=== PATIENT | female | born 1950 | race Caucasian/White ===

== ENCOUNTER → 2017-02-24 | Outpatient (CLI) | payer MEDICARE, OTHER ==
[~2017-02-24] MED LIST: CALCIUM 600-D 61 TAB PO; CALCIUM 600600 MG PO; CALCIUM600 MG PO; COLACE 100100 MG/CAP PO; COZAAR100 MG PO; HCTZ 25MG TAB25 MG PO; HCTZ 25MG25 MG PO; HEXAVITAMIN1 CAP PO; MULTI VITAMINS1 TAB PO; NORCO 325 MG-51 TAB PO; NORCO 325 MG-7.1 TA1 PO; OMEGA-3 FISH1200 MG PO; PREMARIN 0.60.625 M1 PO; RELAFEN 50500 MG/TAB PO; TENORMIN 5050 MG/TAB PO; TENORMIN50 MG PO; ZOFRAN4 M1 PO
== END ==
LOC: COL.RAD 12:43
DX: M54.42 Lumbago with sciatica, left side (principal)
CPT/HCPCS: J3301

== ENCOUNTER → 2017-03-16 | Outpatient (CLI) | payer MEDICARE, OTHER | LOC: MHCPAIN 10:21 | DX: G89.29 Other chronic pain (principal); M47.27 Other spondylosis with radiculopathy, lumbosacral region; M53.3 Sacrococcygeal disorders, not elsewhere classified | CPT/HCPCS: G0463 ==

== ENCOUNTER 2017-03-30 12:59 | Outpatient (CLI) | payer MEDICARE, OTHER ==
[2017-03-30] VITALS (7 sets, daily range): BP systolic 150–176; BP diastolic 72–90; PULSE 49–56
[~2017-03-30] VITALS: Ht 154.9 cm; Wt 97.5 kg
== END 2017-03-30 16:36 | disposition home or self-care (01) ==
LOC: COL.RAD 12:59
DX: M51.26 Other intervertebral disc displacement, lumbar region (principal); M51.36 Other intervertebral disc degeneration, lumbar region; M48.06 Spinal stenosis, lumbar region
CPT/HCPCS: Q9965

== ENCOUNTER → 2017-04-13 | Outpatient (CLI) | payer MEDICARE, OTHER | LOC: MHCPAIN 10:23 | DX: G89.29 Other chronic pain (principal); M47.817 Spondylosis without myelopathy or radiculopathy, lumbosacral region; M53.3 Sacrococcygeal disorders, not elsewhere classified; M48.06 Spinal stenosis, lumbar region | CPT/HCPCS: G0463 ==

== ENCOUNTER → 2017-07-14 | Outpatient (CLI) | payer MEDICARE, OTHER | LOC: MHCPAIN 07:57 | DX: G89.29 Other chronic pain (principal); M47.27 Other spondylosis with radiculopathy, lumbosacral region; M53.3 Sacrococcygeal disorders, not elsewhere classified | CPT/HCPCS: G0463 ==

== ENCOUNTER 2017-07-28 07:30 | Outpatient (RCR) | payer MEDICARE, OTHER | END 2017-08-02 | LOC: WSPT | DX: M48.06 Spinal stenosis, lumbar region (principal); M47.816 Spondylosis without myelopathy or radiculopathy, lumbar region | CPT/HCPCS: G8978-GP; G8979-GP ==

== ENCOUNTER 2017-08-25 07:30 | Outpatient (RCR) | payer MEDICARE, OTHER | END 2017-08-31 09:06 | LOC: WSPT 07:30 | DX: M48.061 Spinal stenosis, lumbar region without neurogenic claudication (principal); M47.816 Spondylosis without myelopathy or radiculopathy, lumbar region | CPT/HCPCS: G8979-GP; G8980-GP ==

== ENCOUNTER → 2017-09-08 | Outpatient (CLI) | payer MEDICARE, OTHER | LOC: MC.RAD 07:00 | DX: Z12.31 Encounter for screening mammogram for malignant neoplasm of breast (principal) ==

== ENCOUNTER → 2017-10-06 | Outpatient (CLI) | payer MEDICARE, OTHER | LOC: MHCPAIN 07:55 | DX: G89.29 Other chronic pain (principal); M47.27 Other spondylosis with radiculopathy, lumbosacral region; M53.3 Sacrococcygeal disorders, not elsewhere classified | CPT/HCPCS: G0463 ==

== ENCOUNTER → 2018-04-06 | Outpatient (CLI) | payer MEDICARE, OTHER | LOC: MHCPAIN 08:02 | DX: G89.29 Other chronic pain (principal); M47.817 Spondylosis without myelopathy or radiculopathy, lumbosacral region; M54.16 Radiculopathy, lumbar region; M53.3 Sacrococcygeal disorders, not elsewhere classified; M48.061 Spinal stenosis, lumbar region without neurogenic claudication | CPT/HCPCS: G0463 ==

== ENCOUNTER 2018-07-26 08:26 | Day surgery (SDC) | payer MEDICARE, OTHER ==
[~2018-07-26] VITALS: Ht 152.4 cm; Wt 92.0 kg
[~2018-07-26 08:26] MED LIST changes: -TENORMIN 5050 MG/TAB PO; +TENORMIN100 MG PO
[2018-07-26] MEDS ORDERED: NEURONTIN300 MG/CAP PO (08:45)
[2018-07-26] MEDS ORDERED: OMEGA-31 SGL PO (08:46)
[2018-07-26] MEDS ORDERED: NORCO 325 MG-51 TAB PO (08:46)
[2018-07-26] MEDS ORDERED: BENADRYL25 M2 PO (08:47)
[2018-07-26] MEDS ORDERED: CLARITIN 1010 MG/TAB PO (08:47)
[2018-07-26 09:24] VITALS: BP 150/94; PULSE 56; TEMP 97.7
[2018-07-26 10:05] VITALS: BP 146/80; PULSE 52; TEMP 97.8
[2018-07-26 10:20] VITALS: BP 131/67; PULSE 50
[2018-07-26 10:35] VITALS: BP 149/76; PULSE 42
== END 2018-07-26 11:15 | disposition home or self-care (01) ==
LOC: SDCO 08:26
DX: Z12.11 Encounter for screening for malignant neoplasm of colon (principal); K64.0 First degree hemorrhoids; I10 Essential (primary) hypertension; M19.90 Unspecified osteoarthritis, unspecified site; M54.9 Dorsalgia, unspecified; Z90.710 Acquired absence of both cervix and uterus; Z90.722 Acquired absence of ovaries, bilateral; Z88.2 Allergy status to sulfonamides; Z88.8 Allergy status to other drugs, medicaments and biological substances
CPT/HCPCS: J2250; J3010; J7030

== ENCOUNTER → 2018-10-05 | Outpatient (CLI) | payer MEDICARE, OTHER ==
[~2018-10-05] MED LIST changes: +BENADRYL25 M2 PO; +CLARITIN 1010 MG/TAB PO; +NEURONTIN300 MG/CAP PO; +OMEGA-31 SGL PO
== END ==
LOC: MHCPAIN 08:01
DX: G89.29 Other chronic pain (principal); M47.817 Spondylosis without myelopathy or radiculopathy, lumbosacral region; M54.16 Radiculopathy, lumbar region; M53.3 Sacrococcygeal disorders, not elsewhere classified; M48.061 Spinal stenosis, lumbar region without neurogenic claudication
CPT/HCPCS: G0463

== ENCOUNTER → 2018-10-20 | Outpatient (CLI) | payer MEDICARE, OTHER | LOC: MHCPAIN 08:01 | DX: M47.817 Spondylosis without myelopathy or radiculopathy, lumbosacral region (principal); M54.16 Radiculopathy, lumbar region | CPT/HCPCS: J1100; Q9967 ==

== ENCOUNTER → 2018-11-01 | Outpatient (CLI) | payer MEDICARE, OTHER | LOC: MHCPAIN 07:57 | DX: G89.29 Other chronic pain (principal); M47.817 Spondylosis without myelopathy or radiculopathy, lumbosacral region; M54.16 Radiculopathy, lumbar region; M53.3 Sacrococcygeal disorders, not elsewhere classified; M48.061 Spinal stenosis, lumbar region without neurogenic claudication | CPT/HCPCS: G0463 ==

== ENCOUNTER → 2018-12-19 | Outpatient (CLI) | payer MEDICARE, OTHER | LOC: MHCPAIN 09:11 | DX: G89.29 Other chronic pain (principal); M47.817 Spondylosis without myelopathy or radiculopathy, lumbosacral region; M54.16 Radiculopathy, lumbar region; M53.3 Sacrococcygeal disorders, not elsewhere classified; M48.061 Spinal stenosis, lumbar region without neurogenic claudication | CPT/HCPCS: G0463 ==

== ENCOUNTER → 2018-12-29 | Outpatient (CLI) | payer MEDICARE, OTHER | LOC: MHCPAIN 08:15 | DX: M47.817 Spondylosis without myelopathy or radiculopathy, lumbosacral region (principal); M54.16 Radiculopathy, lumbar region | CPT/HCPCS: J1100; Q9967 ==

== ENCOUNTER → 2019-02-28 | Outpatient (CLI) | payer MEDICARE, OTHER | LOC: MC.RAD 07:31 | DX: Z12.31 Encounter for screening mammogram for malignant neoplasm of breast (principal) ==

== ENCOUNTER → 2019-03-28 | Outpatient (CLI) | payer MEDICARE, OTHER | LOC: MHCPAIN 08:10 | DX: G89.29 Other chronic pain (principal); M47.817 Spondylosis without myelopathy or radiculopathy, lumbosacral region; M54.16 Radiculopathy, lumbar region; M53.3 Sacrococcygeal disorders, not elsewhere classified; M48.061 Spinal stenosis, lumbar region without neurogenic claudication | CPT/HCPCS: G0463 ==

== ENCOUNTER → 2019-03-30 | Outpatient (CLI) | payer MEDICARE, OTHER | LOC: MHCPAIN 08:14 | DX: M47.817 Spondylosis without myelopathy or radiculopathy, lumbosacral region (principal); M54.16 Radiculopathy, lumbar region | CPT/HCPCS: J1100; Q9967 ==

== ENCOUNTER → 2019-04-12 | Outpatient (CLI) | payer MEDICARE, OTHER | LOC: MHCPAIN 08:49 | DX: G89.29 Other chronic pain (principal); M47.817 Spondylosis without myelopathy or radiculopathy, lumbosacral region; M54.16 Radiculopathy, lumbar region; M53.3 Sacrococcygeal disorders, not elsewhere classified; M48.061 Spinal stenosis, lumbar region without neurogenic claudication | CPT/HCPCS: G0463 ==

== ENCOUNTER 2019-06-01 13:00 | Outpatient (RCR) | payer MEDICARE, OTHER | END 2019-06-22 14:41 | disposition home or self-care (01) | LOC: WSC 13:00 | DX: M47.816 Spondylosis without myelopathy or radiculopathy, lumbar region (principal); M48.061 Spinal stenosis, lumbar region without neurogenic claudication ==

== ENCOUNTER → 2019-07-11 | Outpatient (CLI) | payer MEDICARE, OTHER | LOC: MHCPAIN 08:11 | DX: G89.29 Other chronic pain (principal); M47.817 Spondylosis without myelopathy or radiculopathy, lumbosacral region; M54.16 Radiculopathy, lumbar region; M53.3 Sacrococcygeal disorders, not elsewhere classified; M48.061 Spinal stenosis, lumbar region without neurogenic claudication | CPT/HCPCS: G0463 ==

== ENCOUNTER 2019-09-07 09:16 | Outpatient (CLI) | payer MEDICARE, OTHER ==
--- NOTE | 2019-09-04 09:02 | NUR ---
LMOM FOR PT TO CALL BACK AND GAVE TIME,DATE AND INSTRUCTIONS
[~2019-09-07] VITALS: Ht 152.4 cm; Wt 100.3 kg
[2019-09-07] VITALS (8 sets, daily range): BP systolic 94–160; BP diastolic 57–94; PULSE 43–65
[2019-09-07] MEDS ORDERED: TOPROL XL100 MG PO (09:53)
--- NOTE | 2019-09-07 13:00 | NUR ---
Discharge instructions given to pt.pt verbalizes understanding.Pt escorted out via wheelchair by this nurse.
== END 2019-09-07 14:47 | disposition home or self-care (01) ==
LOC: COL.RAD 09:16
DX: M48.061 Spinal stenosis, lumbar region without neurogenic claudication (principal); M51.16 Intervertebral disc disorders with radiculopathy, lumbar region
CPT/HCPCS: Q9965

== ENCOUNTER 2020-02-07 12:56 | Outpatient (RCR) | payer MEDICARE, OTHER ==
[~2020-02-07 12:56] MED LIST changes: +TOPROL XL100 MG PO
== END 2020-05-07 | disposition home or self-care (01) ==
LOC: WSPT
DX: M47.816 Spondylosis without myelopathy or radiculopathy, lumbar region (principal); M79.651 Pain in right thigh; R10.31 Right lower quadrant pain; Z98.1 Arthrodesis status

== ENCOUNTER → 2020-05-03 | Outpatient (CLI) | payer MEDICARE, OTHER | LOC: MC.RAD 14:45 | DX: Z12.31 Encounter for screening mammogram for malignant neoplasm of breast (principal) ==

== ENCOUNTER → 2021-07-01 | Outpatient (CLI) | payer MEDICARE | LOC: MC.RAD 10:47 | DX: Z12.31 Encounter for screening mammogram for malignant neoplasm of breast (principal) ==

== ENCOUNTER → 2022-07-28 | Outpatient (CLI) | payer MEDICARE | LOC: MC.RAD 10:53 | DX: Z12.31 Encounter for screening mammogram for malignant neoplasm of breast (principal) ==

== ENCOUNTER 2024-02-02 10:20 | Emergency (ER) | payer MEDICARE ==
[~2024-02-02] VITALS: Ht 154.9 cm; Wt 95.5 kg
[~2024-02-02 10:20] MED LIST changes: +MIRALAX PA17 GM/Dose PO; +TRIAMC 0.1 454 TOP; +[UNRECOGNIZED DRUG - OTHER] TOP
[2024-02-02 10:50] VITALS: TEMP 97.7
[2024-02-02] MEDS ORDERED: Morphine 4 MG/ML VIAL IV ONE (11:15)
[2024-02-02 11:37] LABS: BASO # 0.1 K/mm3 (0.0-0.2); EOS # 0.3 K/mm3 (0.0-0.7); EOS % 3.7 % (0.0-4.0); GRAN # 4.7 K/mm3 (1.4-6.5); GRAN % 70.3 % (42.2-75.2); HEMATOCRIT 40.3 % (37.0-47.0); HEMOGLOBIN 13.6 g/dl (12.5-16.0); LYMPH # 1.1 K/mm3 (1.2-3.4); LYMPH % 16.7 % (20.0-51.0); MEAN CELL VOLUME 88 fl (80.0-100.0); MEAN CORPUSCULAR HEMOGLOBIN 30 pg (27-31); MEAN CORPUSCULAR HGB CONC 34 g/dl (33.0-37.0); MONO # 0.5 K/mm3 (0.1-0.6); MONO % 7.6 % (1.7-9.3); PLATELET COUNT 372 K/mm3 (130-400); RED BLOOD COUNT 4.58 M/mm3 (4.10-5.30)
[2024-02-02 12:08] LABS: ALBUMIN 4.4 gm/dL (3.4-4.8); BILIRUBIN,TOTAL 0.6 mg/dL (0.2-1.2); CALCIUM 10.9 mg/dL (8.4-10.2); CREATININE, serum 0.8 mg/dL (0.57-1.11); POTASSIUM 3.7 mmol/L (3.5-4.5); TOTAL PROTEIN 8.2 gm/dL (6.2-8.1)
[2024-02-02 12:29] LABS: C-REACTIVE PROTEIN 0.4 mg/dL (0.00-0.50)
[2024-02-02] MEDS ORDERED: NS 1,000 ML IV ONE (12:30)
[2024-02-02] MEDS ORDERED: DOXYCYCLINE 10100 MG PO (12:40)
[2024-02-02] MEDS ORDERED: CEPHALEXIN500 M1 PO (12:41)
[2024-02-02] MEDS ORDERED: NORCO 325 MG-51 TAB PO (13:08)
[2024-02-02 15:33] VITALS: BP 183/71; PULSE 55
== END 2024-02-02 15:33 | disposition home or self-care (01) ==
LOC: COL.ER 10:20
PROVIDERS: Physician Assistant
DX: S81.802A Unspecified open wound, left lower leg, initial encounter (principal); L08.9 Local infection of the skin and subcutaneous tissue, unspecified; Z88.2 Allergy status to sulfonamides; W22.8XXA Striking against or struck by other objects, initial encounter
CPT/HCPCS: J2270; J3370; J7030; J7040

== ENCOUNTER → 2024-06-27 | Outpatient (CLI) | payer MEDICARE ==
[~2024-06-27] MED LIST changes: +CEPHALEXIN500 M1 PO; +DOXYCYCLINE 10100 MG PO; +LASIX 40MG TABL40 MG PO; +STOOL SOFTENER100 M2 PO; +TRIAMCINOLONE A15 GM TP; +VITAMIN C500 MG PO; +VITAMIN D31000 I1 PO
== END ==
LOC: MHCPAIN 08:49
DX: M48.062 Spinal stenosis, lumbar region with neurogenic claudication (principal); M96.1 Postlaminectomy syndrome, not elsewhere classified
CPT/HCPCS: G0463

== ENCOUNTER → 2024-07-06 | Outpatient (CLI) | payer MEDICARE ==
[~2024-07-06] MED LIST changes: +Iohexol 300 - 10 ML VIAL ONE; +Lidocaine PF 2% (20 MG/ML) 2 ML VIAL ONE
== END ==
LOC: MHCPAIN 14:08
DX: M54.16 Radiculopathy, lumbar region (principal)
CPT/HCPCS: J1100; Q9967

== ENCOUNTER → 2024-08-15 | Outpatient (CLI) | payer MEDICARE ==
[~2024-08-15] MED LIST changes: -Iohexol 300 - 10 ML VIAL ONE; -Lidocaine PF 2% (20 MG/ML) 2 ML VIAL ONE
== END ==
LOC: MHCPAIN 08:25
DX: M54.16 Radiculopathy, lumbar region (principal); M48.061 Spinal stenosis, lumbar region without neurogenic claudication; M96.1 Postlaminectomy syndrome, not elsewhere classified; M54.50 Low back pain, unspecified; I10 Essential (primary) hypertension; Z79.891 Long term (current) use of opiate analgesic
CPT/HCPCS: G0463